=== PATIENT | female | born 1935 | race Caucasian/White ===

== ENCOUNTER 2016-10-16 19:51 | Observation (INO) | payer MEDICARE, SELFPAY ==
[~2016-10-16] VITALS: Ht 165.1 cm; Wt 77.1 kg
[2016-10-16 21:14] LABS: HEMOGLOBIN 14.4 gm/dl (12.3-15.3); RED BLOOD COUNT 4.68 M/UL (4.00-5.10); WHITE BLOOD COUNT 7.2 K/UL (4.5-11.0)
[2016-10-17] MEDS ORDERED: LIPITOR TAB 2020 MG PO (09:20)
[2016-10-17] MEDS ORDERED: ZESTORETIC 20-1 EAC1 PO (09:20)
[2016-10-17] MEDS ORDERED: SYNTHROID100 MCG PO (09:21)
[2016-10-17] MEDS ORDERED: NORCO 7.5-3251 EACH PO (09:22)
[2016-10-17] MEDS ORDERED: DONEPEZIL HCL10 MG PO (13:29)
[2016-10-17] MEDS ORDERED: METFORMIN HCL500 MG PO (13:30)
[2016-10-17] MEDS ORDERED: ASPIRIN EC81 MG PO (13:30)
[2016-10-18 05:21] LABS: BUN/CREATININE RATIO 19 (0-10)
[2016-10-18] MEDS ORDERED: TAMIFLU75 MG PO (10:58)
[2016-10-18] MEDS ORDERED: CEFUROXIME250 MG PO (11:02)
== END 2016-10-18 11:48 | disposition home or self-care (01) ==
LOC: ER1 19:51 → ZEROF 10-17 01:15 → MED SURG 4 10-17 01:15 → ZEROF 10-17 01:15 → MED SURG 4 10-17 13:15
PROVIDERS: Emergency Medicine; Family Medicine; ADMIT Internal Medicine
DX: R07.89 Other chest pain (principal); J09.X2 Influenza due to identified novel influenza A virus with other respiratory manifestations; N39.0 Urinary tract infection, site not specified; I10 Essential (primary) hypertension; E11.9 Type 2 diabetes mellitus without complications; E03.9 Hypothyroidism, unspecified; E87.6 Hypokalemia; E78.5 Hyperlipidemia, unspecified; R53.1 Weakness; G89.29 Other chronic pain; Z82.49 Family history of ischemic heart disease and other diseases of the circulatory system; Z79.82 Long term (current) use of aspirin; Z79.84 Long term (current) use of oral hypoglycemic drugs; Z79.891 Long term (current) use of opiate analgesic; Z79.899 Other long term (current) drug therapy; Z90.710 Acquired absence of both cervix and uterus; Z98.51 Tubal ligation status; Z98.890 Other specified postprocedural states
CPT/HCPCS: 36415; 70450; 71010; 80048; 80053; 80061; 81001; 82550; 82553; 82962; 83036; 83690; 83735; 83874; 83880; 84132; 84443; 84484; 85025; 85610; 85730; 87086; 93005; 96374; 96375; 99285; G0378; J0696